=== PATIENT | female | born 1935 | race African-American/Black ===

== ENCOUNTER 2019-07-05 11:30 | Emergency (ER) | payer OTHER ==
[~2019-07-05] VITALS: Ht 162.6 cm; Wt 59.9 kg
[2019-07-05 11:33] VITALS: BP 149/89
[2019-07-05 12:06] LABS: ABSOLUTE NEUTROPHILS 4.2 thou/uL (1.4-8.2); BASOPHILS 0.5 % (0.0-2.0); EOSINOPHILS 2.1 % (0.0-3.0); HEMATOCRIT 34.7 % (37.0-47.0); HEMOGLOBIN 11.2 gm/dL (12.0-15.0); LYMPHOCYTES 23.9 % (24.0-44.0); MCH 28.4 pg (26.0-34.0); MCHC 32.2 g/dL (28.0-37.0); MCV 88.3 fL (80.0-100.0); PLATELET COUNT 193 thou/uL (150-400); POLYS 66.5 % (36.0-66.0); RBC 3.93 mil/uL (4.20-5.00); RDW 15.3 % (10.5-14.5); WBC 6.3 thou/uL (4.0-11.0)
[2019-07-05 12:14] LABS: ANION GAP 7 mmol/L (7-16); BUN 7 mg/dL (7-18); CALCIUM 9.7 mg/dL (8.5-10.1); CHLORIDE 101 mmol/L (98-107); CO2 30 mmol/L (21-32); CREATININE 0.8 mg/dL (0.6-1.0); GLUCOSE 106 mg/dL (74-106); POTASSIUM 3.5 mmol/L (3.5-5.1); SODIUM 138 mmol/L (136-145)
[2019-07-05 12:24] LABS: ALBUMIN 3.2 g/dL (3.4-5.0); SGOT 13 U/L (15-37); SGPT 20 U/L (30-65); TOTAL BILIRUBIN 0.7 mg/dL (<0.1-1.0); TOTAL PROTEIN 7.5 g/dL (6.4-8.2); TROPONIN-I <0.06 ng/mL (<0.06)
[2019-07-05 12:34] LABS: LIPASE 2308 U/L (73-393)
[2019-07-05 13:01] VITALS: BP 149/89
--- NOTE | 2019-07-05 13:16 | EKG ---
[facility] [place] [address] ELECTROCARDIOGRAM REPORT Name: CINTHYA AMADOR Room #: PRE [facility]..#: [id number] Admission: Attend Phys: Discharge: Date of : 35 Report #: [id number] THIS REPORT FOR: cc: Jovan Horvath MD ~ THIS REPORT FOR: //name// [facility] ED Test Date: 2019-07-05 Test Time: 11:30:58 Pat Name: CINTHYA AMADOR Department: Room: Gender: Windshield Technician: : 1935 Requested By: Lora Peterson Order Number: [id number] MD: Jovan Horvath Measurements Intervals [place] Rate: 85 P: 68 AL: 168 QRS: 43 QRSD: 80 T: 62 QT: 358 QTc: 426 Interpretive Statements Sinus rhythm RSR' in V1 or V2, right VCD or RVH Borderline ST elevation, anterior leads No previous ECG available for comparison Electronically Signed On 07-05-2019 13:15:24 DIRECTOR OF OCCUPATIONAL THERAPY by Jovan Horvath [email or web address] <ELECTRONICALLY SIGNED> By: Jovan Horvath MD 07/05/19 1315 1130 29 Jovan [email or web address] MD /NICOLASA
[2019-07-05] MEDS ORDERED: TOPROL XL100 MG PO (13:40)
[2019-07-05] MEDS ORDERED: CELEXA 10 MG TA10 M1 PO (13:40)
[2019-07-05] MEDS ORDERED: COMBIGAN EYE DR10 ML OPHTHALMIC (13:40)
[2019-07-05] MEDS ORDERED: VALSARTAN40 MG PO (13:40)
[2019-07-05] MEDS ORDERED: MEMANTINE HCL10 MG PO (13:41)
[2019-07-05] MEDS ORDERED: ROSUVASTATIN CAL5 MG PO (13:41)
[2019-07-05 18:30] VITALS: BP 170/95
== END 2019-07-05 18:30 | disposition home or self-care (01) ==
LOC: EDBD 11:30 → ER 11:30 → EROBS 13:53 → ER 13:53
PROVIDERS: Nurse Practitioner Family
DX: K85.90 Acute pancreatitis without necrosis or infection, unspecified (principal); G30.9 Alzheimer's disease, unspecified; E03.9 Hypothyroidism, unspecified; E78.5 Hyperlipidemia, unspecified; I10 Essential (primary) hypertension; F02.80 Dementia in other diseases classified elsewhere, unspecified severity, without behavioral disturbance, psychotic disturbance, mood disturbance, and anxiety; Z87.891 Personal history of nicotine dependence